=== PATIENT | female | born 1940 | race Caucasian/White ===

== ENCOUNTER 2024-03-10 10:46 | Outpatient (CLI) | payer MEDICARE, SELFPAY ==
--- NOTE | ~2024-03-10 | DEXA_ITS ---
Bone Density Report Name: RAMA VILLEGAS Age: 83 Sex: Female Ethnicity: White Date of : 1940 Indication: postmenopausal; screening for osteoporosis; height loss; cancer; Referring Provider: MADDI PAK Study: Bone densitometry was performed. Exam Date: March 10, 2024 Accession number: [id number] Bone Density: Region BMD T-score Z-score Classification AP Spine(L1-L4) 1.148 0.9 3.7 Normal Femoral Neck (Left) 0.655 -1.7 0.7 Osteopenia Total Hip (Left) 0.725 -1.8 0.5 Osteopenia World Health Organization criteria for BMD impression classify patients as: Normal (T-score at or above -1.0), Osteopenia (T-score between -1.0 and -2.5), or Osteoporosis (T-score at or below -2.5). 10-year Fracture Risk: FRAX not reported because: Treated for osteoporosis Clinical Information Provided by Patient: Is being treated for osteoporosis Has used the following medications: Vitamin D, Calcium, unkown med for osteoporosis Has the following medical conditions: Cancer Patient maximum height was 64.0 Drinks caffeinated beverages Onset of menses at age 15 Number of children 2 Impression: The patient has low bone mass, based on the Left Total Hip T-score. Discussion: It is important to ask patients whether they are taking their medications and to encourage continued and appropriate compliance with their osteoporosis therapies to reduce fracture risk. It is also important to review their risk factors and encourage appropriate calcium and vitamin D intakes, exercise, fall prevention and other lifestyle measures. Follow-Up: Consider a repeat BMD and Vertebral Fracture Assessment (VFA) exam in 2 years or sooner if medically necessary, to reassess this patient's status. Reported by: LUCILA on 03/10/2024 11:22:00 AM. Reviewed, dictated and finalized at location [facility]
== END 2024-03-10 10:47 | disposition home or self-care (01) ==
LOC: ANHIMG 10:51
PROVIDERS: PCP Internal Medicine; Visit Provider Internal Medicine
DX: M81.0 Age-related osteoporosis without current pathological fracture (principal)
CPT/HCPCS: 77080

== ENCOUNTER 2024-10-06 09:54 | Outpatient (CLI) | payer MEDICARE, SELFPAY ==
--- NOTE | ~2024-10-06 | XR_ITS ---
AP view of the pelvis and AP and lateral views of the left hip Clinical history: Pain Findings: No acute fracture or dislocation is seen. Osseous alignment is anatomic. Right hip arthropl asty in place. There is mild to moderate left hip joint degenerative change.. Soft tissues are unrema rkable. Impression: Mild to moderate left hip joint degenerative change. Right hip arthroplasty. Reviewed, dictated and finalized at location . Impression: Mild to moderate left hip joint degenerative change. Right hip arthroplasty.
--- OUTSIDE RECORDS SUMMARY | 2024-10-06 10:56 | XMS_ITS | Continuity of Care Document ---
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 Role Phone Randa Fowler Unavailable Unavailable Procedures Procedure Date Eye Exam, New Patient Refraction Progressive Lens, Plastic Frames Deluxe Tint Photochromatic, Plastic Tax - Medical Advance Directives Directive Yes / No Effective Date File Name No Information Encounters Encounter Description Practice Location Reason(s) For Visit Diagnoses Date Provider Providers Copied on Encounter [facility], [id number] [place] [address] [address], [place], [place], [id number], [place] tel:[phone] [facility] No Information 9 Janeth Tolentino. [address] [place] [address] , [address], [place], [address], [place]. tel:[phone] [facility], [address] [place] [address] [address], [place], [place], [id number], [place] tel:[phone] [facility] No Information 9 [facility] . [address], [address], [place], [place], [id number], [place]. tel:[phone] Referring Provider: Randa Carnes, [address] [place] [address] [address], [place], [address]. tel:[phone] sulting Provider: Joe Amin, [facility], [place], [address]. tel:[phone] Family History Family Member Type Diagnosis Age At Onset No Information Payers Payer name Insurance type Covered republican ID Authoriza tion(s) No Information Social History Type Description Quantity Date Captured Comments Sex Female Smoking Status No Information Chief Complaint And Reason For Visit No Information Reason For Referral Reason For Referral No Information History Of Present Illness Encounter Date Complaint History Of Prese nt Illness No Information Functional Status Date Functional Assessmen t No Information Instructions Date Instruction Additional Infor mation No Information Assessments Type Assessment Date No Information Patient Care Teams Name Effective Dates (start - stop) Status Members No Information
--- OUTSIDE RECORDS SUMMARY | 2024-10-06 10:57 | XMS_ITS | Data Portability ---
Author Organization [place] [facility], Main Office Address [address] [place] [address] Care Team Providers [employer] Consulting Director Name Role Phone KOFI RODRIGUEZ Primary Care Provider [phone] KOFI RODRIGUEZ Referring Provider Assessment Encounter Date Assessment Date Assessment LastModified by Organization Details LastModified Time 11/20/2023 11/20/2023 onychomycosis [email or web address] Not available 11/20/2023 15:23:53 Plan of Treatment Reminders Order Date Submit Date Provider Last Modified By Organization Details Last Modified Time Details Appointments None recorded. Lab lipid panel, serum [address] [place] [address] Outpatient Lab, [address] [place], [address], 12:00:24 CMP, serum or plasma [address] [place] [address] Outpatient Lab, [address] [place], [address], 12:00:25 CBC w/ auto diff [address] [place] [address] Outpatient Lab, [address] [place], [address], 12:00:25 T4, free, serum [address] [place] [address] Outpatient Lab, [address] [place], [address], 12:00:25 TSH challenge, serum [address] [place] [address] Outpatient Lab, [address] [place] [address] [place], [address], 12:00:26 Referral None recorded. Procedures None recorded. Surgeries None recorded. Imaging None recorded. Medication Orders Medrol (Michael) 4 mg tablets in a dose pack [address]/Pharmacy #[id number], [address], [place], [address], 11:39:52 benzonatate 200 mg capsule [address]/Pharmacy #[id number], [address], [place], [address], 11:39:37 Silvadene 1 % topical cream [address]/Pharmacy #[id number], [address], [place], [address], 11:40:00 Patient TargetsNo targets recorded. Patient Instructions Encounter Date Encounter Id Patient Instructions Last Modified By Organization Details Last Modified Time 11/07/2023 [id number] Rheumatoid arthritis clinically stable. Presently taking prednisone, methotrexate as well as Fosamax for bone structure. Clinically stable this time no interval complaints of any new problems. Will continue on current Rx and follow-up four months. Next Appointment: 4 Months Approximate Date: 03/06/2024 Portions of the record may have been created with voice recognition software. Occasional wrong-word or kriog-v-dbys substitutions may have occurred due to the inherent limitations of voice recognition software. Read the chart carefully and recognize, using context, where substitutions have occurred. Not available 11/07/2023 15:43:29 12/26/2023 [id number] Questionable mas s right breast, rheumatoid arthritis, osteoporosis as well as obesity class one. Has had blood work recently in July. Blood work at that time looked adequate. The EGFR was slightly low at 46 but does not wish to have any further diagnostic studies performed. Will need a diagnostic mammogram for evaluation. Will continue on current medications otherwise. Follow-up in six months Additional Orders and/or Directives: 1. Diagnostic mammogram right breast and left. Questionable mass right breast Keep Appointment: Sun 10:50 AM [place] Portions of the record may have been created with voice recognition software. Occasional wrong-word or hkwfw-n-bjvy substitutions may have occurred due to the inherent limitations of voice recognition software. Read the chart carefully and recognize, using context, where substitutions have occurred. [email or web address] Not available 12/26/2023 17:15:45 03/19/2024 [id number] Acute bronchitis . Plan is to continue on her Augmentin. Will add some Tessalon Perles and a Medrol Dosepak. Instructed let us know if she has no improvement the next 24-36 hours. Additional Orders - Directives - Recommendations 1. Given order for a chest x-ray that she would get if no improvement in next 24 hours Portions of the record may have been created with voice recognition software. Occasional wrong-word or qvviq-a-zxxr substitutions may have occurred due to the inherent limitations of voice recognition software. Read the chart carefully and recognize, using context, where substitutions have occurred. [email or web address] Not available 03/19/2024 12:34:07 09/30/2024 [id number] Rheumatoid arthritis, left hip pain, osteoporosis and obesity class one. Check blood work consisting of CBC, CMP, lipid, thyroid. Check a x-ray of the hip and pelvis on the left. Follow-up in four months Additional Orders - Directives - Recommendations 1. x-ray of left hip and pelvis Follow Up: 4 Months Approximate Date: 01/28/2025 Portions of record are template driven. When necessary additional context will be provided. Additionally some portions have been created with voice recognition software. Occasional wrong-word or bwucx-s-bjyu substitutions may have occurred due to the inherent limitations of voice recognition software. Read the chart carefully and recognize, using context, where substitutions may have occurred. Created: Kofi Rodriguez M.D. 09.30.2024 10:57 AM [email or web address] Not available 09/30/2024 11:57:07 Reason for Referral None Reported. Results Created Date Observation Date Name Description Value Unit Range Abnormal Flag Note LastModifiedBy Organization Detail LastModifiedTime 03/17/20 24 03/17/2024 COVID -19, INFLU MELISSA A+B, PCR sars-cov-2 RNA(covid19) ,RT-PCR NEGATI VE This test has been autho rized by the FDA under an Emerg ency Use Autho rizat ion (EUA) for use by autho rized labor atori es. Negat jolanta resul ts do not precl ude SARS- CoV-2 and shoul d not be used as the sole basis for treat ment or other patie nt manag ement decis ions. Test resul ts shoul d be corre lated with the clini jorge alberto histo ry, epide miolo gical data, and other data avail able to the clini lamont evalu ating the patie nt. Chloé holt w the Fact Sheet s for healt h care provi ders and patie nts at the [facility] phuc: https ://ww w.WolfGIS .gov/ media /3426 12/do wnloa d https ://ww w.fda .gov/ media /1363 13/do wnloa d Cailino tal y: Real- Time RT-PC R Not Available [facility] (Lab) [address] [place], [address], 03/17/2024 13:12:29 03/17/20 24 03/17/2024 COVID -19, INFLU MELISSA A+B, PCR influenza A RNA, RT-PCR NEGATI VE Not Available [facility] (Lab) [address] [place], [address], 03/17/2024 13:12:29 03/17/20 24 03/17/2024 COVID -19, INFLU MELISSA A+B, PCR influenza B RNA, RT-PCR NEGATI VE Not Available [facility] (Lab) [address] [place], [address], 03/17/2024 13:12:29 01/21/20 24 01/21/2024 , sanket reed, michael ed [facility] [address] [place] [address] [phone] Yann t Name: RAMA OCAMPO Access ion #: [id number] Sex: F : 1939 [facility] [id number] Dictat ed By: Elizabeth prieto Attend ing Physic nehal: DANIEL RODRIGUEZ CE Orderi ng Physic nehal: DANIEL RODRIGUEZ CE Exam Date: 2023 10:32 AM Exam Name: US BREAST LIMITE D RT Admitt ing Diagno sis(es ): CLINIC AL HISTOR Y: right breast mass COMPAR AMY: None. Baseli ne examin ation. TECHNI QUE: Digita l breast tomosy nthesi s was perfor med. Synthe sized CC and MLO images were create d from the tomosy nthesi s images . CAD was utiliz ed. Spot compre ssion CC view of the right breast was obtain ed. True latera l view of the right breast was also obtain ed. FINDIN GS: There are scatte red fibrog landul ar densit ies (categ ory B). A marker was placed at the area of the patien t's palpab le abnorm ality in the right upper inner breast , mid depth. No mass or suspic ious abnorm ality identi fied in this locati on on mammog adriana. Otherw ise, no suspic ious findin g is seen in either breast on mammog adriana. No suspic ious mass, vinny ectura l distor tion, or suspic ious microc alcifi cation s are seen. The axilla e, skin and nipple s are normal . Ultras ound was obtain ed to sheryl r evalua te the area of palpab le abnorm ality in the right breast . The right breast was scanne d from the 11:00 to 3:00 positi on corres pondin g to the area of concer n. No mass or suspic ious abnorm ality identi fied on ultras ound. IMPRES FRANNY: Normal mammog adriana and diagno stic right breast ultras ound. RECOMM ENDATI ONS: In the absenc e of new breast compla ints, annual screen ing is recomm ended. The patien t will be notifi ed of the mammog nichole result s per hospit al protoc ol. BI-RAD S CATEGO RY: 1: Negati ve. Electr onical ly Signed by: Elizabeth prieto at 2023 11:17: 29 AM Page 1 [facility] [address] [place] [address] Patien t Name: RAMA OCAMPO Access ion #: [id number] Sex: F : 1939 7 Dictat ed By: Elizabeth prieto Attend ing Physic nehal: HAYDE SAMAYOA Physic nehal: DANIEL RODRIGUEZ Exam Date: 2023 10:32 AM Exam Name: US BREAST LIMITE D RT Admitt ing Diagno sis(es ): Page [address] (Imaging) [address] [place], [address], 01/21/2024 17:06:55 01/21/20 24 01/21/2024 MAMMO , diagn ostic , tomos ynthe sis, bilat eral [facility] [address] [place] [id number] Patien t Name: RAMA OCAMPO Access ion #: [id number] Sex: F : 1939 7 Dictat ed By: Elizabeth prieto Attend ing Physic nehal: DANIEL RODRIGUEZ Physic nehal: DANIEL RODRIGUEZ Exam Date: 2023 10:19 AM Exam Name: MG DIAG BREAST BETTYE BILAT Admitt ing Diagno sis(es ): CLINIC AL HISTOR Y: right breast mass COMPAR AMY: None. Baseli ne examin ation. TECHNI QUE: Digita l breast tomosy nthesi s was perfor med. Synthe sized CC and MLO images were create d from the tomosy nthesi s images . CAD was utiliz ed. Spot compre ssion CC view of the right breast was obtain ed. True latera l view of the right breast was also obtain ed. FINDIN GS: There are scatte red fibrog landul ar densit ies (categ ory B). A marker was placed at the area of the patien t's palpab le abnorm ality in the right upper inner breast , mid depth. No mass or suspic ious abnorm ality identi fied in this locati on on mammog adriana. Otherw ise, no suspic ious findin g is seen in either breast on mammog adriana. No suspic ious mass, vinny ectura l distor tion, or suspic ious microc alcifi cation s are seen. The axilla e, skin and nipple s are normal . Ultras ound was obtain ed to furthe r evalua te the area of palpab le abnorm ality in the right breast . The right breast was scanne d from the 11:00 to 3:00 positi on corres pondin g to the area of concer n. No mass or suspic ious abnorm ality identi fied on ultras ound. IMPRES FRANNY: Normal mammog adriana and diagno stic right breast ultras ound. RECOMM ENDATI ONS: In the absenc e of new breast compla ints, annual screen ing is recomm ended. The patien t will be notifi ed of the mammog nichole result s per hospit al protoc ol. BI-RAD S CATEGO RY: 1: Negati ve. Electr onical ly Signed by: Elizabeth prieto at 2023 11:17: 29 AM Page 1 [facility] [address] [place] [address] Patien t Name: RAMA OCAMPO Access ion #: [id number] Sex: F : 1939 7 Dictat ed By: Elizabeth prieto Attend ing Physic nehal: HAYDE SAMAYOA Physic nehal: DANIEL RODRIGUEZ Exam Date: 2023 10:19 AM Exam Name: MG DIAG BREAST BETTYE BILAT Admitt ing Diagno sis(es ): Page 2 [email or web address] [facility] (Imaging) [address] [place] [address], [facility], 01/21/2024 17:07:28 03/10/20 24 03/10/2024 DEXA, axial skele ton No observ ation record ed. [address] [facility] [address], [place], [address], 03/10/2024 14:42:29 03/20/20 24 03/20/2024 XR, chest , 2 view [facility] [address] [place] [address] Patien t Name: RAMA OCAMPO Access ion #: [id number] Sex: F : 1939 4 Dictat ed By: Cholo Garcia Attend ing Physic nehal: DANIEL RODRIGUEZ CE Orderi Physic nehal: DANIEL RODRIGUEZ CE Exam Date: 2023 09:46 AM Exam Name: XR CHEST 2V Admitt ing Diagno sis(es ): CHEST RADIOG RAPH Indica tion:c ough Techni que: Fronta l and latera l view of the chest was obtain ed Compar amy: None FINDIN GS: Lines and Tubes: None Lungs: Clear Pleura : No effusi on. No pneumo thorax . Cardio medias tinal contou rs: Unrema rkable Bones: Unrema rkable IMPRES FRANNY: No eviden ce of acute diseas e. Electr onical ly Signed by: Cholo Garcia at 2023 10:34: 50 AM Page [address] ([facility]) [address] [place], [address], 03/20/2024 11:57:46 Result Notes None recorded. Problems Name Problem SNOMED Code Status Onset Date Resolution Date Notes Provider Name and Address Organization Details Recorded Time Closed fracture of lateral malleolus of left fibula 1692169023527 9109 Active 2020 Not Available [facility] 3 08:37:51 Sprain of left ankle 0057401870734 9105 Active 2020 Not Available [facility] 3 08:37:51 Acute sinusitis 32787112 Active 2021 Not Available [facility] 3 08:37:51 Pain of left ankle joint 4405504785135 9103 Active 2020 Not Available [facility] 3 08:37:51 Anemia 517634307 Active 2021 Not Available [facility] 3 08:37:51 Low back pain 648763377 Active 2021 Not Available [facility] 3 08:37:51 Pain in left lower limb 391868126 Active 2021 Not Available [facility] 3 08:37:51 Pain of left hip joint 1932266971430 00 Active 2021 Not Available [facility] 3 08:37:51 Vitamin D deficiency 81090672 Active Not Available [facility] 3 08:37:51 Osteoarthr itis 698190112 Active Not Available [facility] 3 08:37:51 Seborrheic dermatitis 41121878 Active Not Available [facility] 3 08:37:51 Fatigue 59853934 Active 2021 Not Available [facility] 3 08:37:51 Increased frequency of urination 088031701 Active 2022 Not Available [facility] 3 08:37:51 Acute urinary tract infection 677201054 Active 2022 Not Available [facility] 3 08:37:51 Lumbar radiculopa thy 954557517 Active 2022 Not Available [facility] 3 08:37:51 Cervical radiculopa thy 21317624 Active 2022 Not Available [facility] 3 08:37:51 Pain in right hip joint 6772210838410 02 Active 2022 Not Available [facility] 3 08:37:51 Pain of right knee joint 4945444477271 00 Active 2022 Not Available [facility] 3 08:37:51 Osteoporos is 61131303 Active 2022 Not Available [facility] 3 08:37:51 Osteoarthr itis of right hip joint 5841024143336 07 Active 2022 Not Available [facility] 3 08:37:51 Preoperati ve cardiovasc ular examinatio n Active 2022 Not Available [facility] 3 08:37:51 Multiple joint pain 08457590 Active 2022 Not Available [facility] 3 08:37:51 Osteoarthr itis of hip 729651092 Active 2022 Not Available [facility] 3 08:37:51 Degenerati on of lumbar interverte bral disc 05061712 Active 2022 Jackeline Carrillo CMA null, [place] [facility] 3 16:22:02 Paronychia of toe 560498158 Active 2022 Kofi Rodriguez MD [address], [place], [address] , [facility] 3 11:52:14 Cellulitis of toe of right foot 5994563214736 9106 Active 2023 Kofi Rodriguez MD [address], [address], [place], [address] , [facility] 4 12:14:36 Cellulitis of lower limb 205646675 Active 2023 Lizet Ramsay CMA null, [place] [facility] 4 10:19:57 Onychomyco sis 572148944 Active 2023 CHAPARRITA Oconnell null, [place] [facility] 4 12:10:48 Paronychia of toe of right foot 5085890446738 9102 Active 2023 Sarmad Temple DPM [address], [address], [place], [address] , [facility] 4 12:20:00 Pain in left foot 9530853928469 07 Active 2023 Sarmad Temple DPM [address], [address], [place], [address] , [place] [facility] 4 12:44:06 Pain in right foot 6334354853806 07 Active 2023 Sarmad Temple DPM [address], [address], [place], [address] , [place] [facility] 4 12:44:24 Rheumatic arthritis 9687696255 Active 2023 Kofi Rodriguez MD [address], [address], [place], [address] , [place] [facility] 4 11:42:45 Sebaceous cyst of skin 695735139 Active 2023 ANEL Pate, [place] [facility] 4 12:34:53 Mass of right breast 8194092978929 9106 Active 2023 Kofi Rodriguez MD [address], [address], [place], [address] , [facility] 4 17:10:32 Obese class I 2120449727448 07 Active 2023 Kofi Rodriguez MD [address], [address], [place], [address] , [place] [facility] 4 17:12:39 Cough 82718488 Active 2023 ANEL Pate, [place] [facility] 4 10:12:44 Furuncle 698972042 Active 2024 Kofi Rodriguez MD [address], [address], [place], [address] , [place] [facility] 5 10:43:17 Age related macular degenerati on 229051691 Active 2024 Kofi Rodriguez MD [address], [address], [place], [address] , [place] [facility] 5 11:53:17 Problem Notes None recorded. Procedures Surgical History Date Name Laterality Status Provider Name and Address Organization Details Recorded Time 4 Nail Debridement completed Sarmad Temple DPM [address], [address], [place], [address], [facility] [employer] 11/20/2023 15:23:41 4 Nail Debridement completed Sarmad Temple DPM [address] [facility], [place], [address], [employer] [facility] [employer] 09/17/2023 12:22:17 4 Total Nail Avulsion with Chemical Matrixectomy-Ri ght completed Sarmad Temple DPM [address] [facility] [place] [address] [address], [place], [address], [facility] [email or web address] [facility] [employer] 08/13/2023 12:21:41 Imaging Results Imaging Date Name Status LastModified by Organiz ation Details LastModified Time 01/21/2024 US, breast, limited completed [address] (Imaging) [address] [place], [address], 01/21/2024 17:06:55 01/21/2024 MAMMO, diagnostic, tomosynthesis, bilateral completed [address] (Imaging) [address] [place], [address], 01/21/2024 17:07:28 03/10/2024 DEXA, axial skeleton completed [address], [address], 03/10/2024 14:42:29 03/20/2024 XR, chest, 2 view completed [address] (Imaging) [address] [place], [address], 03/20/2024 11:57:46 Procedure Notes None recorded. Medical Equipment None Reported. Allergies No known drug allergies Medications Name Sig Start Date Stop Date Status Note LastModified by Organization Details LastModified Time amoxicillin 500 mg capsule Take 1 capsule 3 times a day by oral route for 10 days. active Not Available Not Available No t Available silver sulfadiazin e 1 % topical cream APPLY A 1/16 INCH (1.5 MM) THICK LAYER TO ENTIRE BURN AREA TOPICALLY TWICE A DAY 09/30 completed Not Available Not Available Not Available prednisone 10 mg tablet TAKE 1 TABLET BY MOUTH EVERY DAY 09/30 completed Not Available Not Available Not Available fluconazole 150 mg tablet TAKE 2 TABLETS BY MOUTH TODAY, THEN 1 TABLET ONCE WEEKLY 12/25 completed Not Available Not Available Not Available benzonatate 200 mg capsule TAKE 1 CAPSULE BY MOUTH THREE TIMES A DAY 09/30 completed Not Available Not Available Not Available prednisone 20 mg tablet TAKE 1 TABLET BY MOUTH EVERY DAY FOR 5 DAYS 12/21 completed Not Available Not Available Not Available alendronate 70 mg tablet TAKE 1 TAB BY MOUTH WEEKLY WITH GLASS OF WATER AND SIT OR STAND UPRIGHT FOR 60 MINTUES AFTER TAKING active Not Available Not Available No t Available Zithromax Z-Michael 250 mg tablet TAKE 2 TABLETS (500 MG) BY ORAL ROUTE ONCE DAILY FOR 1 DAY THEN 1 TABLET (250 MG) BY ORAL ROUTE ONCE DAILY FOR 4 DAYS 12/21 completed Not Available Not Available Not Available tramadol 50 mg tablet TAKE 1 TABLET BY MOUTH EVERY 6 HOURS 12/21 completed Not Available Not Available Not Available calcium 600 mg (as calcium carbonate 1,500 mg) tablet TAKE 1 TABLET BY MOUTH DAILY 09/30 completed Not Available Not Available Not Available prednisolon e acetate 1 % eye drops,suspe nsion INSTILL ONE DROP INTO RIGHT EYE THREE TIMES A DAY FOR 2 WEEKS. 09/30 completed Not Available Not Available Not Available methotrexat e sodium 2.5 mg tablet TAKE 3 TABLETS BY MOUTH ONCE WEEKLY 04/24 completed Not Available Not Available Not Available ciprofloxac in 0.3 % eye drops INSTILL 1 DROP 3 TIMES DAILY INTO SURGICAL EYE. START 2 DAYS PRIOR TO SURGERY AND CONTINUE X1 WEEK 07/23 completed Not Available Not Available Not Available cephalexin 500 mg capsule TAKE 1 CAPSULE BY MOUTH EVERY 6 HOURS 09/30 completed Not Available Not Available Not Available diclofenac 0.1 % eye drops INSTILL 1 DROP INTO SURGICAL EYE 3 TIMES DAILY. START 2 DAYS BEFORE SURGERY AND CONTINUE X2 WEEKS 07/23 completed Not Available Not Available Not Available Levaquin 500 mg tablet Take 1 tablet every 24 hours by oral route. 01/22 completed Not Available Not Available Not Available ergocalcife rol (vitamin D2) 1,250 mcg (50,000 unit) capsule TAKE 1 CAPSULE EVERY WEEK BY ORAL ROUTE. 03/15 completed Not Available Not Available Not Available methylpredn isolone 4 mg tablets in a dose pack TAKE 6 TABLETS ON DAY 1 DIRECTED ON PACKAGE AND DECREASE BY 1 TAB EACH DAY FOR A TOTAL OF 6 DAYS 09/30 completed Not Available Not Available Not Available celecoxib 100 mg capsule TAKE 1 CAPSULE BY MOUTH EVERY DAY 03/15 completed Not Available Not Available Not Available cefdinir 300 mg capsule Take 1 capsule every 12 hours by oral route. 04/12 completed Not Available Not Available Not Available amoxicillin 875 mg-potassiu m clavulanate 125 mg tablet Take 1 tablet every 12 hours by oral route. 09/30 completed Not Available Not Available Not Available oxycodone 5 mg tablet 2.5 MILLIGRAM (S) BY MOUTH EVERY 4 HOURS (STANDARD ) 02/15 completed Not Available Not Available Not Available cholecalcif karolina (vitamin D3) 50 mcg (2,000 unit) capsule TAKE 1 CAPSULE BY MOUTH ONCE DAILY 09/30 completed Not Available Not Available Not Available Senexon-S 8.6 mg-50 mg tablet TAKE 2 TABLETS BY MOUTH TWICE A DAY TO PREVENT CONSTIPAT ION - HOLD FOR LOOSE STOOLS active Not Available Not Available No t Available Eliquis 2.5 mg tablet PLEASE SEE ATTACHED FOR DETAILED DIRECTION S 03/15 completed Not Available Not Available Not Available Vitals Date Recorded Body height Body mass index (BMI) Body weight Heart rate Body temperature Oxygen saturation Oxygen saturation in Arterial blood by Pulse oximetry Systolic blood pressure Diastolic blood pressure Provider Name and Address Organization Details Last Updated DateTime 4 160.02 cm 32.9 kg/m2 11652.1 8 g 76 /min 97.5 [degF] 95 % 95 % 142 mm[Hg] 80 mm[Hg] CHAPARRITA Hernandez [place] [facility] [employer] [facility] 4 15:21:19 Date Recorded Body height Body mass index (BMI) Body weight Oxygen saturation Oxygen saturation in Arterial blood by Pulse oximetry Body temperature Heart rate Provider Name and Address Organization Details Last Updated DateTime 4 160.02 cm 32.8 kg/m2 44481.5 9 g 95 % 95 % 98.2 [degF] 80 /min [facility] [employer] [facility] 4 12:23:26 Date Recorded Body height Body mass index (BMI) Body weight Heart rate Body temperature Oxygen saturation Oxygen saturation in Arterial blood by Pulse oximetry Systolic blood pressure Diastolic blood pressure Provider Name and Address Organization Details Last Updated DateTime 4 160.02 cm 32.4 kg/m2 94169.4 g 100 /min 98.1 [degF] 95 % 95 % 138 mm[Hg] 86 mm[Hg] Isabel Wynn [facility] [employer] [facility] 4 16:55:05 Date Recorded Body height Body weight Heart rate Body temperature Oxygen saturation Oxygen saturation in Arterial blood by Pulse oximetry Systolic blood pressure Diastolic blood pressure Provider Name and Address Organization Details Last Updated DateTime 4 160.02 cm 21637.2 2 g 83 /min 97 [degF] 97 % 97 % 148 mm[Hg] 74 mm[Hg] Isabel Wynn [facility] [employer] [facility] 4 12:05:01 Date Recorded Body height Body mass index (BMI) Body weight Heart rate Body temperature Oxygen saturation Oxygen saturation in Arterial blood by Pulse oximetry Systolic blood pressure Diastolic blood pressure Provider Name and Address Organization Details Last Updated DateTime 5 160.02 cm 33.7 kg/m2 28409.5 5 g 100 /min 97 [degF] 98 % 98 % 142 mm[Hg] 70 mm[Hg] Miladys Haley [facility] [employer] [facility] 5 11:39:18 Social History Question Answer Notes LastModified by Organizat ion Details LastModified Time Tobacco Smoking Status Unknown If Ever Smoked Not Available [employer] 08/23/2022 12:52:14 What Is Your Level Of Alcohol Consumption? None [email or web address] Information not available 12/21/2022 What Was The Date Of Your Most Recent Tobacco Screening? 11/20/2023 Information not available 11/20/2023 Sex: Unknown Functional Status None recorded. Mental Status None recorded. Family History Relationship Description Onset Age of this Age Resolved Age Notes LastModified by Organization Details LastModified Time Father Heart disease [email or web address] Not available 2022 14:18:47 Brother Family history of malignant neoplasm [email or web address] Not available 2022 14:19:00 Sister Family history of malignant neoplasm [email or web address] Not available 2022 14:19:00 Sister Diabetes mellitus Not available 2022 14:19:10 Notes:Mother at 52 from TB Father at 82 from ASHD, HTN, and COPD. Had two brothers both from what sounds like lymphoma. Four one living. . On has carotid stenosis and one from Ca Lung the other of complications of CAD Medical History Condition Response NERVE DISEASE N BLINDNESS N RHEUMATIC FEVER N KIDNEY STONES N BLADDER PROBLEMS N MRSA N OTHER # 1 N POLIO N LUNG DISEASE/DISORDER N HISTORY OF DRUG ABUSE N RADIATION / CHEMOTHERAPY N COPD N Other # 2 N BLOOD DISEASES N EAR OR HEARING PROBLEMS N MUMPS N SHINGLES N DEPRESSION (INCLUDING POST ) N BOWEL PROBLEMS N STROKE/TIA N ULCERS N BENIGN PROSTATIC HYPERPLASIA N MEASLES N HYPOTENSION N MYOCARDIAL INFARCTION N OBESITY N GERD/NAUSEA N ANEURYSM N URINARY/BLADDER/KIDNEY PROBLEMS N CORONARY ARTERY DISEASE (CAD) N ADDICTION CONCERNS N Impotence N ENDOMETRIOSIS N USE OF BLOOD THINNERS N SKIN PROBLEMS N GASTROINTESTINAL DISORDER N PERIPHERAL VASCULAR DISEASE N MUSCLE,JOINT OR BONE PROBLEMS N GASTROINTESTINAL BLEEDING N BLOOD CLOTS N ASTHMA N CATARACTS N ERECTILE DYSFUNCTION N VARICOSITIES N GI PROBLEMS N Low Testosterone N INFERTILITY N AIDS/HIV N CHEMOTHERAPY / RADIATION N LIVER DISEASE N MALE HYPOGONADISM N HYPERTENSION N Deficiency N TOURETTE'S N ANXIETY DISORDER N BLOOD TRANSFUSION N ANEMIA/BLOOD DISORDER N CHRONIC EAR INFECTIONS N BRONCHITIS N TUBERCULOSIS N GLAUCOMA N FOOT PROBLEM N DIVERTICULITIS N SLEEP APNEA N CHICKENPOX N INFECTIOUS DISEASE N PROSTATE N HEART ARRHYTHMIA N INSOMNIA N HIGH CHOLESTEROL / HYPERLIPIDEMIA N HYPERTHYROIDISM N EYE PROBLEMS N EDEMA N CHRONIC PAIN SYNDROME N HYPOTHYROIDISM N CONSTIPATION N CAROTID BLOCKAGE N BACK / NECK PROBLEMS N HAVE YOU BEEN HOSPITALIZED OR SEEN IN [facility] IN THE PAST YEAR ? N ATHEROSCLEROSIS N BREAST PROBLEMS N DIALYSIS N ECZEMA N OSTEOPOROSIS N ARTHRITIS Y NO SIGNIFICANT PAST MEDICAL HISTORY N APPENDICITIS N DIABETES, TYPE N BAD TEETH N ENT N HEARTBURN / REFLUX N AUTISM SPECTRUM DISORDER (ASD) N HEPATITIS / LIVER DISEASE N GOUT N SLEEP DISORDER N ALZHEIMER'S DISEASE N Brain Problems N HERPES N DEMENTIA N SEIZURES/EPILEPSY N HEADACHES/MIGRAINES N VASCULAR DISEASE N PACEMAKER N Blood Disorder N DIZZINESS N KIDNEY DISEASE N HEART DISEASE/HEART PROBLEMS N MULTIPLE SCLEROSIS N CARDIAC ARRHYTHMIA N CANCER: SPECIFY N Gall Stones N ATRIAL FIBRILLATION N PULMONARY EMBOLISM N AUTOIMMUNE DISEASE N Gynecological HistoryNo gynecological history recorded. Obstetrics History GPAL:G 0 P 0 0 0 0 Past Encounters Encounter ID Performer Location Encounter Start Date Encounter Closed Date Diagnosis/Indication Diagnosis SNOMED-CT Code Diagnosis ICD10 Code Diagnosis Note [id number] [facility] [address] [place] [id number] 09/13/2020 00:00:00 09/13/2020 10:57:55 [id number] _ATHENA_M IGRATION_ DEFAULT_1 _1 , 04/08/2021 00:00:00 04/12/2021 12:35:06 [id number] _ATHENA_M IGRATION_ DEFAULT_1 _1 , 05/06/2021 00:00:00 05/08/2021 21:50:58 [id number] [facility] Internal Med [facility] [address] [place] [id number] 0 05/11/2022 00:00:00 05/11/2022 11:13:02 [id number] Kofi Rodriguez MD [facility] Internal Med [facility] [address] [place] [id number] 0 09/27/2022 14:57:19 09/27/2022 15:51:16 Lumbar radiculopathy 602186672 M54.16 Cervical radiculopathy 22114794 M54.12 [id number] Denis Pereira MD [facility]_[address] [address] 12/21/2022 13:55:17 12/25/2022 09:51:17 Pain in right hip joint 6581227522 75273 M25.551 M16.11 Osteoporosis 72149366 M8 1.0 [id number] Denis Pereira MD [facility] [address] [address] 01/04/2023 12:05:47 01/09/2023 13:51:50 Pain in right hip joint 4818805710 05095 M25.551 M16.11 Osteoporosis 57939524 M8 1.0 [id number] Kofi Rodriguez MD [facility] Internal Med [facility] [address] [address] 01/10/2023 16:20:52 01/10/2023 17:00:58 Multiple joint pain 96658803 M25.50 Osteoarthritis of hip 23 9687679 M16.9 Osteoporosis 55165195 M8 1.0 [id number] MAY Shaw [facility] [address] [address] 02/01/2023 11:50:48 02/01/2023 13:07:13 History of right total knee replacement 3734294368 925068 Z96.651 Postoperative visit 1836 01028 Z09 [id number] MAY Shaw [facility] [address] [address] 02/15/2023 11:43:41 02/15/2023 13:09:09 Pain in right hip joint 7620728682 13248 M25.551 M16.11 [id number] Denis Pereira MD [facility]_[address] [address] 03/15/2023 11:06:37 03/16/2023 09:51:15 Osteoarthritis of right hip joint 7424289461 09484 M16.11 Degenerati on of lumbar intervertebral disc 36633024 M51.36 [id number] Kofi Rodriguez MD [facility] Internal Med [facility] [address] [address] 06/06/2023 10:56:30 06/06/2023 12:01:47 Cervical radiculopathy 11717185 M54.12 Lumbar radiculopathy 128 535045 M54.16 Multiple joint pain 3567 8005 M25.50 Paronychia of toe 051294 002 L03.436 [id number] Kofi Rodrgiuez MD [facility] Internal Med [facility] [address] [address] 07/23/2023 11:46:00 07/23/2023 13:36:57 Multiple joint pain 97201219 M25.50 Cellulitis of toe of right foot 1480717935 5614353 L03.531 [id number] Sarmad Temple DPM [facility] Podiat[facility] [place] [address] [address] 08/13/2023 11:35:51 08/13/2023 14:40:34 Onychomycosis 120723007 B35.1 Paronychia of toe of right foot 9092010988 8279148 L03.031 total nail avulsion, Rt great toenail; [id number] Sarmad Temple DPM [facility] [place] [address] [address] 08/20/2023 11:47:01 08/20/2023 13:41:00 Paronychia of toe of right foot 2705723740 0102168 L03.031 total nail avulsion, Rt great toenail; Pain in left foot 640967 4882 50291 M79.672 Pain in right foot 02571 54979 35695 M79.049 [id number] [facility]ad Temple [facility]PM [facility] [address] [address] 09/17/2023 11:37:54 09/17/2023 13:58:10 Onychomycosis 235169370 B35.1 nails reduced this date; no incidents during tx. [id number] Kofi Rodriguez MD [facility] Internal Med [facility] [address] [address] 10/10/2023 11:17:39 10/10/2023 11:48:49 Rheumatic arthritis 9679650296 M06.9 [id number] Kofi Rodriguez MD [facility] Internal Med [facility] [address] [address] 11/07/2023 15:09:06 11/07/2023 15:45:31 Rheumatic arthritis 3642781555 M06.9 [id number] Sarmad Temple DPM [facility] [address] [address] 11/20/2023 11:55:24 11/20/2023 15:49:14 Paronychia of toe of right foot 5078001384 4600647 L03.031 total nail avulsion, Rt great toenail; [id number] Kofi Rodriguez MD [facility] Internal Med [facility] [address] [address] 12/26/2023 16:48:51 12/28/2023 07:47:26 Rheumatic arthritis 0375488876 M06.9 Osteoporosis 92307512 M8 1.0 Mass of right breast 326 5056630 9622419 N63.10 Obese class I 9489537589 55235 E66.9 [id number] Kofi Rodriguez MD [facility] Internal Med [facility] [address] [address] 03/19/2024 11:44:52 03/19/2024 12:37:46 Acute sinusitis 46082042 J01.90 [id number] Kofi Rodriguez MD [facility] [address] [facility] [address] [place] [address] 09/30/2024 11:09:46 09/30/2024 12:05:32 Rheumatic arthritis 4101240595 M06.9 Pain of le ft hip joint 8639828946 14030 M25.552 Osteoporosis 11882754 M8 1.0 Obese class I 4028063437 35721 E66.9 Screening for cardiovascular system disease 511696585 Z13.6 Health Concerns Section Related Observation LastModified by Organization Detai ls LastModified Time None Recorded Concern Status LastModified by Organization Details LastModified Time None Recorded Advance Directives Directive None Recorded Payers Encounter Date Sequence Insurance Name Policy Number Policy Mendez Covered Member ID Mendez Member ID Guarantor Name 11/07/[address] [facility] [employer] - MEDICARE SOLUTIONS - MEDICARE COMPLETE (MEDICARE REPLACEMENT HMO) [id number] Rama Petersen [id number] Rama Petersen 11/20/2023 1 [employer] - [employer] - MEDICARE SOLUTIONS - MEDICARE COMPLETE (MEDICARE REPLACEMENT HMO) [id number] Rama Petersen [id number] Rama Petersen 12/26/[address] [facility] - [facility] - MEDICARE SOLUTIONS - MEDICARE COMPLETE (MEDICARE REPLACEMENT HMO) [id number] Rama Petersen [id number] Rama Petersen 03/19/[address] [facility] - [facility] - MEDICARE SOLUTIONS - MEDICARE COMPLETE (MEDICARE REPLACEMENT HMO) [id number] Rama Petersen [id number] Ramahansa Petersen 09/30/[address] [facility] - [facility] - MEDICARE SOLUTIONS - MEDICARE COMPLETE (MEDICARE REPLACEMENT HMO) [id number] Rama Nicloa [id number] Rama Petersen Notes Date Note Type Note Provider Name and Address Organization Details Recorded Time 11/07/2023 text/html Patient Name: Ruba LaukatyaDate Of Service: Sunday ( 11.07.2023 ): 1940 Age: 83 There has been approximately a 3 lb weight gain since 10/10/2023. This represents approximately a 1.6% change in weight. Weight change attributable to lifestyle changes. Vital Signs:Blood Pressure: Sitting Rt. Arm 142/80Pulse: Sitting 76 /min and RegularRespiratory Rate: 12Height 63 in or 1.6 mWeight 186 lb or 84.4 kgBMI 32.9Temperature: 97.5 F or 36.4 CPulse Oximetry: 95 % at rest on no oxygen Chief Complaint: Addressed in HPI Problems or conditions discussed in the HPI were the only ones reviewed during the encounter.Only social and family history addressed in the HPI were reviewed during this encounter. Attendant(s): NoneConstitutional and Systemic Symptoms:none Medication Reconciliation: from medication list. 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 With partial fusion. Degenerative disc disease and facet arthropathy see cause multilevel significant neural foraminal stenosis. There is moderate spinal stenosis noted at C5-C6 and C6-C7. Mild spinal stenosis is noted at C3-C4 and C4-C5. There is mass effect on the cervical spinal cord reduce level of C3 through C7.10/01/2022: MRI of the lumbar spine demonstrated degenerative disc disease and facet hypertrophy with significant neural foraminal stenosis L2-L3 on the right L3-L4 on the right L4-L5 bilaterally at L5-S1 bilaterally. Moderate to severe spinal stenosis is noted at L3-L4 and L4-L5. History of Present Illness #1. Hx of rheumatoid arthritis. Currently stable. No additional joint swelling or deformities noted. Synovial thickening as noted below. Physical activity status unchanged. Followed by Industrial Illuminating Engineer: Yes. Tolerating medications well. Medications currently consistent of Prednisone, Methotrexate and Fosamax. 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 Had two brothers both from what sounds like lymphoma. Four one living. . On has carotid stenosis and one from Ca Lung the other of complications of CAD Kofi Rodriguez MD [address] [facility], [place] [address], [place], [address], [employer] [facility] [employer] 11/07/2023 15:43:41 11/20/2023 text/html NIDDM pt RTC for routine c/o nails both feet. No problems reported. Sarmad Temple DPM [address] [facility], [place], [address], [employer] 11/20/2023 15:23:57 12/26/2023 text/html Patient Name: Ruba santo NicolaDate Of Service: Sunday ( 12.26.2023 ): 1940 Age: 83 There has been approximately a 3 lb weight loss since 11/07/2023. This represents approximately a 1.6% change in weight. Weight change attributable to lifestyle changes. Vital Signs:Blood Pressure: Sitting Rt. Arm 138/86Pulse: Sitting 100 /min and RegularRespiratory Rate: 12Height 63 in or 1.6 mWeight 183 lb or 83.0 kgBMI 32.4Temperature: 98.1 F or 36.7 CPulse Oximetry: 95 % at rest on no oxygen Chief Complaint: Addressed in HPI Problems or conditions discussed in the HPI were the only ones reviewed during the encounter.Only social and family history addressed in the HPI were reviewed during this encounter. Attendant(s): NoneConstitutional and Systemic Symptoms:none Medication Reconciliation: from medication list. 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 With partial fusion. Degenerative disc disease and facet arthropathy see cause multilevel significant neural foraminal stenosis. There is moderate spinal stenosis noted at C5-C6 and C6-C7. Mild spinal stenosis is noted at C3-C4 and C4-C5. There is mass effect on the cervical spinal cord reduce level of C3 through C7.10/01/2022: MRI of the lumbar spine demonstrated degenerative disc disease and facet hypertrophy with significant neural foraminal stenosis L2-L3 on the right L3-L4 on the right L4-L5 bilaterally at L5-S1 bilaterally. Moderate to severe spinal stenosis is noted at L3-L4 and L4-L5. History of Present Illness #1. Complaining of asymmetry and some density in his to the right breast. No discrete mass. As well as noticed some change in the volume of the right axilla although examination of this area does not reveal any evidence of any palpable masses or adenopathy. No other systemic manifestations of any problems. Has also noticed slight asymmetry in the arm which is more likely secondary to asymmetry due to right arm dominance rather than any pathological process.: #2. Hx of rheumatoid arthritis. Currently stable. No additional joint swelling or deformities noted. Synovial thickening as noted below. Physical activity status unchanged. Followed by Industrial Illuminating Engineer: Yes. Tolerating medications well. Medications currently consistent of Prednisone and Methotrexate. #3. osteoporosis. No new complaints of any additional back,hip or other musculoskeletal complaints related to the osteoporosis. No hx of any recent trauma. Currently taking OsCal-D and Fosamax. Has has had a recent DEXA scan done within the last year. The FRAX Score for Hip Fracture is NA hx osteoporosis FRAX score for major fractures NA hx of osteoporosis #4. Hx of obesity. Currently Class 1 Obesity BMI 30-34.99. Has tried numerous dietary support and supplements with no benefit. Instructed on the health consequences of the obese status particularly cancer - diabetes and heart disease. Discussed other modalities of weight loss no. Potential candidate for bariatric surgery: No. Wishes to be evaluated by Dietary: No and was offered to be evaluated and instructed by workday director on weight loss diet. 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 Had two brothers both from what sounds like lymphoma. Four one living. . On has carotid stenosis and one from Ca Lung the other of complications of CAD Kofi Rodriguez MD [address] [place] [address], [place], [address], [facility] [employer] 12/26/2023 17:15:58 03/19/2024 text/html Patient Name: Ruba santo NicolaDate Of Service: Sunday ( 03.19.2024 ): 1940 Age: 83 There has been approximately a 2 lb weight loss since 12/26/2023. This represents approximately a 1.1% change in weight. Weight change attributable to lifestyle changes. Vital Signs:Blood Pressure: Sitting Rt. Arm 148/74Pulse: Sitting 83 /min and RegularRespiratory Rate: 16Height 63 in or 1.6 mWeight 181 lb or 82.1 kgBMI 32.1 Chief Complaint: Addressed in HPI Problems or conditions discussed in the HPI were the only ones reviewed during the encounter.Only social and family history addressed in the HPI were reviewed during this encounter. Attendant(s): NoneConstitutional and Systemic Symptoms:fever Medication Reconciliation: from medication list. 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 With partial fusion. Degenerative disc disease and facet arthropathy see cause multilevel significant neural foraminal stenosis. There is moderate spinal stenosis noted at C5-C6 and C6-C7. Mild spinal stenosis is noted at C3-C4 and C4-C5. There is mass effect on the cervical spinal cord reduce level of C3 through C7.10/01/2022: MRI of the lumbar spine demonstrated degenerative disc disease and facet hypertrophy with significant neural foraminal stenosis L2-L3 on the right L3-L4 on the right L4-L5 bilaterally at L5-S1 bilaterally. Moderate to severe spinal stenosis is noted at L3-L4 and L4-L5. History of Present Illness #1. Cough congestion sinus drainage. Duration approximately 5-6 days. Low-grade fever at times although afebrile this time. Was started on some Augmentin two days ago. No intercourse case any type of fever chills but has complaining of cough congestion some shortness of breath. 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 Had two brothers both from what sounds like lymphoma. Four one living. . On has carotid stenosis and one from Ca Lung the other of complications of CAD Kofi Rodriguez MD [address] [facility], [place], [address], [facility] [employer] 03/19/2024 12:34:34 09/30/2024 text/html Patient Name: Ruba Prabhakar Of Service: Sunday ( 09.30.2024 ): 1940 Age: 84 There has been approximately a 9 lb weight gain since 03/19/2024. This represents approximately a 5.0% change in weight. Weight change attributable to lifestyle changes. Vital Signs:Blood Pressure: Sitting Rt. Arm 142/70Pulse: Sitting 100 /min and RegularRespiratory Rate: 16Height 63 in or 1.6 mWeight 190 lb or 86.2 kgBMI 33.7Temperature: 97 F or 36.1 CPulse Oximetry: 98 % at rest on no oxygen Chief Complaint: Addressed in HPI Problems or conditions discussed in the HPI were the only ones reviewed during the encounter.Only social and family history addressed in the HPI were reviewed during this encounter. Attendant(s): NoneConstitutional and Systemic Symptoms:none Medication Reconciliation: from medication list. 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 With partial fusion. Degenerative disc disease and facet arthropathy see cause multilevel significant neural foraminal stenosis. There is moderate spinal stenosis noted at C5-C6 and C6-C7. Mild spinal stenosis is noted at C3-C4 and C4-C5. There is mass effect on the cervical spinal cord reduce level of C3 through C7.10/01/2022: MRI of the lumbar spine demonstrated degenerative disc disease and facet hypertrophy with significant neural foraminal stenosis L2-L3 on the right L3-L4 on the right L4-L5 bilaterally at L5-S1 bilaterally. Moderate to severe spinal stenosis is noted at L3-L4 and L4-L5. History of Present Illness #1. Hx of rheumatoid arthritis. Currently stable. No additional joint swelling or deformities noted. Synovial thickening as noted below. Physical activity status unchanged. Followed by Industrial Illuminating Engineer: Intermittently. Tolerating medications well. Medications currently consistent of NSAIDS. #2. Complaining of pain and discomfort in the left ischial and hip area. Aggravated when sitting. Also aggravated when walking and movement and standing upright. No numbness, tingling weakness or any other associated neurosensory or motor deficits.: #3. osteoporosis. No new complaints of any additional back,hip or other musculoskeletal complaints related to the osteoporosis. No hx of any recent trauma. Currently taking OsCal-D and Fosamax. Has has had a recent DEXA scan done within the last year. The FRAX Score for Hip Fracture is NA hx osteoporosis FRAX score for major fractures NA hx of osteoporosis #4. Hx of obesity. Currently Class 1 Obesity BMI 30-34.99. Has tried numerous dietary support and supplements with no benefit. Instructed on the health consequences of the obese status particularly cancer - diabetes and heart disease. Discussed other modalities of weight loss no . Potential candidate for bariatric surgery: No. Wishes to be evaluated by Dietary: No and was offered to be evaluated and instructed by workday director on weight loss diet. 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 Had two brothers both from what sounds like lymphoma. Four one living. . On has carotid stenosis and one from [facility] the other of complications of CAD Kofi Rodriguez MD [address], [address], [place], [address], [facility] 09/30/2024 11:57:24 OBGyn Episode No OBEpisode recorded.
--- OUTSIDE RECORDS SUMMARY | 2024-10-06 10:57 | XMS_ITS | CONTINUITY OF CARE DOCUMENT ---
Author Name dioni wheatley Address Unknown Organization [facility] Address [address] [place] [address] Phone [phone] Care Team Providers Care Toy Mechanic Name Role Phone Jason MART, Manuelito Unavailable STEPHANIE MART, SCOTT Cooper Unavailable HAYDE MART, KOFI Unavailable PROBLEMS Condition Status Date Provider Notes Cardiology examination active Manuelito Gomez MD Preoperative cardiovascular examination active Manuelito Gomez MD ENCOUNTERS Date Type Provider Location Encounter Diag nosis - In-person encounter Office Visit Manuelito Gomez MD [facility] Cardiology examinationPreoperative cardiovascular examination VITAL SIGNS Date Observation Value Provider blood pressure, diastolic 53 mm[Hg] Aparna nkLogic blood pressure, systolic 126 mm[Hg] Bridget kLogic Body Mass Index (Ratio) 30.04 kg/m2 Lesli Gomez MD blood pressure, cuff size regular Ja rret blood pressure, diastolic 53 mm[Hg] Ja rret blood pressure, systolic 126 mm[Hg] Tenisha ubeno height E&M 64 [in_i] Lex y weight E&M 175 [lb_av] Lex y oxygen saturation, oximetry 95 % Lex respiratory rate E&M 12 /min pulse rate 74 /min Lex y ALLERGIES No Known Drug Allergies HISTORY OF MEDICATION USE Medication Status Instructions Dates Provider Indications Com ments Calcium 500 unspecified unspecified active Celebrex 100 mg capsule active vitamin E acetate unspecified unspecified active vitamin D3-vitamin K2 unspecified unspecified active SOCIAL HISTORY Date Observation Value Provider drug use no Manuelito Gomez MD alcohol use no Manuelito Gomez MD social history E&M S moking History: Max hardin has never smoked. Manuelito Gomez MD social history reviewed E&M revi ewed - no changes required Manuelito Gomez MD smoking status Never smoker INSURANCE PROVIDERS Payer name Policy type / Coverage type [employer] party ID [id number] [id number] Other [id number] ADVANCE DIRECTIVES Name Date DISCUSSED - NO DECISION MADE TREATMENT PLAN Date Name Performer [id number],C,S he has no evidence of acute coronary syndrome, valvular disease, or rhytm issues and so she is low isk and clear for her right hip surgery. Manuelito Gomez MD Cardiology:She has n o evidence of acute coronary syndrome, valvular disease, or rhytm issues and so she is low isk and clear for her right hip surgery. Manuelito Gomez MD HISTORY OF PROCEDURES Procedure Date Procedure Name Provider Procedure Notes S tatus EKG Manuelito Gomez MD completed
[2024-10-06 11:28] LABS: Basophils Percent Auto 0.2 % (0.2-1.2); Eosinophils Absolute Auto 0.2 K/mm3 (0-0.3); Eosinophils Percent Auto 3.3 % (0-4.4); Hematocrit 33.3 % (37.0-47.0); Hemoglobin 10.1 g/dL (12.0-15.0); Immature Granulocyte Absolute 0.02 K/mm3 (0.00-0.031); Immature Granulocyte Percent A 0.4 % (0-0.5); Lymphocytes Absolute Auto 1.55 K/mm3 (0.9-3.2); Mean Corpuscular HGB Conc 30.3 g/dl (32-36); Mean Corpuscular Hemoglobin 28.8 pg (26-34); Mean Corpuscular Volume 94.9 fl (80-100); Mean Platelet Volume 10.1 fl (7.4-10.4); Monocytes Absolute Auto 0.4 K/mm3 (0.1-0.6); Monocytes Percent Auto 7.9 % (2.6-8.5); Neutrophils Percent Auto 58.2 % (45.5-73.1); Platelet Count Result 205 k/mm3 (150-375); Red Blood Count 3.51 M/mm3 (4.2-5.4); White Blood Count 5.2 K/mm3 (4.5-10.0)
[2024-10-06 11:50] LABS: Alanine Aminotransferase 11 U/L (6-35); Albumin Level 4.2 g/dL (3.5-5.1); Alkaline Phosphatase 69 U/L (38-126); Anion Gap 7 mmol/L (4-12); Aspartate Amino Transferase 22 U/L (14-36); Bilirubin,Total 0.6 mg/dL (0.2-1.3); Blood Urea Nitrogen 21 mg/dL (7-17); Calcium 8.8 mg/dL (8.4-10.2); Carbon Dioxide 26 mmol/L (22-30); Chloride 105 mmol/L (98-107); Cholesterol 185 mg/dL (0-200); Estimated Glomerular Filt Rate 49; Glucose 100 mg/dL (65-110); HDL Direct 52 mg/dL; Potassium 4.5 mmol/L (3.4-5.0); Sodium 138 mmol/L (137-145); Triglycerides 82 mg/dL (<150)
[2024-10-06 11:54] LABS: LDL Cholesterol Direct 91 mg/dL
[2024-10-06 11:58] LABS: Free T4 Free Thyroxine 1.15 ng/dL (0.78-2.19)
== END 2024-10-06 09:55 | disposition home or self-care (01) ==
PROVIDERS: PCP Internal Medicine; Visit Provider Internal Medicine
DX: E66.9 Obesity, unspecified (principal); Z13.6 Encounter for screening for cardiovascular disorders; M16.12 Unilateral primary osteoarthritis, left hip
CPT/HCPCS: 36415; 73502; 80053; 80061; 84439; 84443; 85025

== ENCOUNTER 2024-12-15 09:07 | Outpatient (CLI) | payer MEDICARE, SELFPAY ==
[2024-12-15 10:19] LABS: Alanine Aminotransferase 11 U/L (6-35); Alkaline Phosphatase 67 U/L (38-126); Anion Gap 9 mmol/L (4-12); Aspartate Amino Transferase 20 U/L (14-36); Bilirubin,Total 0.3 mg/dL (0.2-1.3); Blood Urea Nitrogen 22 mg/dL (7-17); Calcium 9.3 mg/dL (8.4-10.2); Carbon Dioxide 25 mmol/L (22-30); Chloride 107 mmol/L (98-107); Estimated Glomerular Filt Rate 45; Glucose 121 mg/dL (65-110); Potassium 4.2 mmol/L (3.4-5.0); Sodium 141 mmol/L (137-145)
[2024-12-15 10:39] LABS: Vitamin D 25 Hydroxy 42.2 ng/mL
== END 2024-12-15 09:08 | disposition home or self-care (01) ==
PROVIDERS: PCP Internal Medicine; Visit Provider Internal Medicine
DX: M81.0 Age-related osteoporosis without current pathological fracture (principal); Z96.641 Presence of right artificial hip joint; Z79.899 Other long term (current) drug therapy
CPT/HCPCS: 36415; 80053; 82306

== ENCOUNTER 2025-05-11 07:31 | Outpatient (CLI) | payer MEDICARE, SELFPAY ==
--- NOTE | ~2025-05-11 | DEXA_ITS ---
Bone Density Report Name: RAMA VILLEGAS Age: 84 Sex: Female Ethnicity: White Date of : 1940 Indication: postmenopausal; screening for osteoporosis; height loss; cancer; Referring Provider: MADDI PAK Study: Bone densitometry was performed. Exam Date: May 11, 2025 Accession number: [id number] Bone Density: Region BMD T-score Z-score Classification AP Spine(L1-L4) 1.235 1.7 4.6 Normal Femoral Neck (Left) 0.691 -1.4 1.1 Osteopenia Total Hip (Left) 0.741 -1.7 0.7 Osteopenia World Health Organization criteria for BMD impression classify patients as: Normal (T-score at or above -1.0), Osteopenia (T-score between -1.0 and -2.5), or Osteoporosis (T-score at or below -2.5). 10-year Fracture Risk: FRAX not reported because: Treated for osteoporosis Clinical Information Provided by Patient: Is being treated for osteoporosis Has used the following medications: Fosamax (i.e. alendronate), Vitamin D, Calcium, unkown med for osteoporosis Has the following medical conditions: Cancer Patient maximum height was 64.0 Menopause Age: 52 No regular weight bearing exercise Drinks caffeinated beverages Onset of menses at age 15 Number of children 2 Impression: The patient has low bone mass, based on the Left Total Hip T-score. Discussion: It is important to ask patients whether they are taking their medications and to encourage continued and appropriate compliance with their osteoporosis therapies to reduce fracture risk. It is also important to review their risk factors and encourage appropriate calcium and vitamin D intakes, exercise, fall prevention and other lifestyle measures. Follow-Up: Consider a repeat BMD and Vertebral Fracture Assessment (VFA) exam in 2 years or sooner if medically necessary, to reassess this patient's status. Reported by: MUKESH on 05/11/2025 8:19:00 AM. Reviewed, dictated and finalized at location A.
== END 2025-05-11 07:32 | disposition home or self-care (01) ==
PROVIDERS: PCP Internal Medicine; Visit Provider Internal Medicine
DX: M81.0 Age-related osteoporosis without current pathological fracture (principal); M85.852 Other specified disorders of bone density and structure, left thigh
CPT/HCPCS: 77080